=== PATIENT | male | born 1990 | race Caucasian/White ===

== ENCOUNTER 2017-01-04 08:24 | Emergency (ER) | payer BC, SELFPAY ==
[2017-01-04] MEDS ORDERED: Amoxicillin/Potassium Clav 875 MG TAB ONE (08:51)
[2017-01-04] MEDS ORDERED: predniSONE 20 MG TAB ONE (08:51)
[2017-01-04] MEDS ORDERED: Ibuprofen 800 MG TAB ONE (08:51)
== END 2017-01-04 09:00 | disposition home or self-care (01) ==
LOC: MADERS 08:24
DX: J03.90 Acute tonsillitis, unspecified (principal); F17.210 Nicotine dependence, cigarettes, uncomplicated
CPT/HCPCS: 99282; J7506

== ENCOUNTER 2020-10-22 10:51 | Emergency (ER) | payer BC, SELFPAY ==
[2020-10-22] MEDS ORDERED: AMOXicillin 250 MG CAP ONE (11:12)
[2020-10-22] MEDS ORDERED: Dexamethasone 4 MG TAB ONE (11:12)
== END 2020-10-22 11:25 | disposition home or self-care (01) ==
LOC: MADERS 10:51
DX: J02.9 Acute pharyngitis, unspecified (principal); F17.210 Nicotine dependence, cigarettes, uncomplicated
CPT/HCPCS: 99282; J8540

== ENCOUNTER 2021-02-09 10:37 | Emergency (ER) | payer BC ==
[2021-02-09] MEDS ORDERED: Dexamethasone 4 MG TAB ONE (12:27)
[2021-02-09] MEDS ORDERED: Ketorolac Tromethamine 60 MG/2 ML VIAL ONE (12:27)
== END 2021-02-09 12:40 | disposition home or self-care (01) ==
LOC: MADERS 10:37
DX: J02.9 Acute pharyngitis, unspecified (principal); M79.10 Myalgia, unspecified site; J30.2 Other seasonal allergic rhinitis; R59.0 Localized enlarged lymph nodes; F17.210 Nicotine dependence, cigarettes, uncomplicated; Z79.899 Other long term (current) drug therapy
CPT/HCPCS: 87081; 87430; 87804; 96372; 99284; J1885; J8540

== ENCOUNTER 2021-09-07 14:10 | Emergency (ER) | payer BC ==
[2021-09-07] MEDS ORDERED: Sodium Chloride 0.9% 1,000 ML ONE (14:52)
[2021-09-07] MEDS ORDERED: Ibuprofen 800 MG TAB ONE (14:52)
[2021-09-07 15:15] LABS: #Basophils 0.1 thou/uL (0.0-0.2); #Eosinphils 0.1 thou/uL (0.0-0.7); #Lymphocytes 0.7 thou/uL (1.20-3.40); #Monocytes 0.6 thou/uL (0.11-0.59); #Neutrophils 6.4 thou/uL (1.40-6.50); %Basophils 1.2 % (0.0-1.0); %Eosinophils 0.9 % (0.0-10.0); %Lymphocytes 8.2 % (21.0-51.0); %Monocytes 8.2 % (0.0-10.0); %Neutrophils 81.6 % (42.0-75.0); Hemoglobin 15.6 g/dL (14.0-18.0); Mean Corpuscular HGB CONC 35.4 g/dL (32.0-36.0); Mean Corpuscular Hemoglobin 31.7 pg (27.0-31.0); Mean Corpuscular Volume 89.5 fL (78.0-98.0); Mean Platelet Volume 7.9 fL (7.4-10.4); Platelet Count 207 thou/uL (130-400); Red Blood Cell (RBC) Count 4.94 mill/uL (4.70-6.10); White Blood Cell (WBC) Count 7.9 thou/uL (4.8-10.8)
[2021-09-07 15:33] LABS: ALT (SGPT) 52 U/L (8-55); AST (SGOT) 27 U/L (5-34); Albumin 4.3 g/dL (3.5-5.0); Alkaline Phosphatase 52 U/L (40-110); Anion Gap 13 mmol/L (10-20); BUN (Urea Nitrogen) 12 mg/dL (8.9-20.6); Bilirubin, Total 0.3 mg/dL (0.2-1.2); CK (CPK) 146 U/L (30-200); Calc. Creatinine Clearance 0 mL/min (70-130); Carbon Dioxide 25 mmol/L (22-29); Chloride 105 mmol/L (98-107); Globulin 2.8 g/dL (2.4-3.5); Glucose 96 mg/dL (70-105); Potassium 3.9 mmol/L (3.5-5.1); Protein, Total 7.1 g/dL (6.0-8.3); Sodium 139 mmol/L (136-145)
[2021-09-07 15:50] LABS: CKMB 1.3 ng/mL (0-6.6)
[2021-09-07 16:35] LABS: SARS-CoV-2 NAA Rapid Test DETECTED (NotDetected)
== END 2021-09-07 16:58 | disposition home or self-care (01) ==
LOC: MADERS 14:10
DX: U07.1 COVID-19 (principal); R77.8 Other specified abnormalities of plasma proteins
CPT/HCPCS: 36415; 71045; 80053; 82550; 82553; 83605; 84484; 85025; 85379; 87804; 93005; J7050; U0002

== ENCOUNTER 2023-07-28 01:19 | Emergency (ER) | payer BC ==
[2023-07-28] MEDS ORDERED: methylPREDNISolone Sod Succ/PF 125 MG/2 ML VIAL ONE (01:52)
== END 2023-07-28 02:12 | disposition home or self-care (01) ==
LOC: MADERS 01:19
DX: R21 Rash and other nonspecific skin eruption (principal); F17.200 Nicotine dependence, unspecified, uncomplicated
CPT/HCPCS: 96372; 99282; J2930

== ENCOUNTER 2025-05-30 14:37 | Emergency (ER) | payer BC | END 2025-05-30 15:07 | disposition home or self-care (01) | LOC: MADERS 14:37 | DX: J06.9 Acute upper respiratory infection, unspecified (principal); B34.9 Viral infection, unspecified; I10 Essential (primary) hypertension; E66.9 Obesity, unspecified; F17.200 Nicotine dependence, unspecified, uncomplicated | CPT/HCPCS: 99283 ==